=== PATIENT | male | born 1990 | race Caucasian/White ===

== ENCOUNTER 2020-12-02 17:09 | Inpatient (IN) | payer BC ==
[~2020-12-02] VITALS: Ht 190.5 cm; Wt 114.2 kg
[2020-12-02 18:07] LABS: BILIRUBIN,URINE NEGATIVE (NEG); CLARITY,URINE CLEAR; COLOR,URINE YELLOW; NITRITE,URINE NEGATIVE (NEG); PH,URINE 5.5 (<5.0-8.0); PROTEIN,URINE NEGATIVE (NEG-TRACE); UROBILINOGEN,URINE 0.2 mg/dL (0.2 mg/dL)
[2020-12-02 18:13] LABS: BASO % 0 % (0-3); EOS # 0.1 x10^3/uL (0.0-0.7); EOS % 1 % (0-3); HEMATOCRIT 45.6 % (39.0-53.0); HEMOGLOBIN 16.1 g/dL (13.0-17.5); LYMPH # 3.2 x10^3/uL (1.0-4.8); LYMPH % 36 % (24-48); MEAN CORPUSCULAR HEMOGLOBIN 33 pg (25-35); MEAN CORPUSCULAR HGB CONC 35 g/dL (31-37); MEAN CORPUSCULAR VOLUME 93 fL (79-100); MONO # 0.8 x10^3/uL (0.0-1.1); MONO % 9 % (0-9); NEUT # 4.7 x10^3/uL (1.8-7.7); NEUT % 54 % (31-73); PLATELET COUNT 230 x10^3/uL (140-400); RED BLOOD COUNT 4.93 x10^6/uL (4.30-5.70); RED CELL DISTRIBUTION WIDTH 11.6 % (11.5-14.5); WHITE BLOOD COUNT 8.8 x10^3/uL (4.0-11.0)
[2020-12-02 18:16] LABS: CALCIUM 9.7 mg/dL (8.5-10.1); CREATININE 1.1 mg/dL (0.7-1.3); GFR 79.7; POTASSIUM 3.3 mmol/L (3.5-5.1)
[2020-12-02 18:21] LABS: ALBUMIN 4.3 g/dL (3.4-5.0); ALBUMIN/GLOBULIN RATIO 1.2 (1.0-1.7); DIRECT BILIRUBIN 0.2 mg/dL (0.0-0.2); TOTAL BILIRUBIN 0.6 mg/dL (0.2-1.0); TOTAL PROTEIN 7.8 g/dL (6.4-8.2)
[2020-12-02 18:22] LABS: BACTERIA,URINE 0 /HPF (0-FEW); HYALINE CASTS, URINE MODERATE /HPF; RBC,URINE 0 /HPF (0-2); WBC,URINE 0 /HPF (0-4)
[2020-12-02] MEDS ORDERED: CONTRAST GIVEN. MC PRN (18:30)
[2020-12-02] MEDS ORDERED: IOHEXOL 300 MG/ML 100ML VIAL. IV ONE (18:30)
--- NOTE | 2020-12-02 18:47 | RAD ---
CT abdomen and pelvis with contrast PQRS statement: CT scans at this facility use dose reduction including either automated exposure cont rol, iterative reconstructions, and /or weight based radiation dosing via mA and kV modification when appropriate to reduce radiation dose to as low as reasonably achievable. Contrast: 75 mL of opaque 300 intravenous contrast. HISTORY: Right lower quadrant abdominal pain. Abdomen findings: Lung bases unremarkable. Chronic bilateral L5 spondylolysis defects with grade one L5 anterolisthesis and L5-S1 neural foraminal stenoses. Lower lumbar disc bulges. Small accessory spl een. Liver, gallbladder, spleen, pancreas, adrenal glands and kidneys are unremarkable. The appendix demonstrates mildly increased diameter as well as density which could be due to wall thickening at th e tip of the appendix on axial image 71, tip has a diameter of 11 mm, although no surrounding edema i s evident and there is no abscess. Remainder of the GI tract demonstrates no obstructive or inflammat ory change. No abdominal fluid or adenopathy. Mild prominent right lower quadrant ileocolic mesenteri c lymph nodes measuring up to 1 cm in size. 1 severe fatty umbilical abdominal wall hernia. Pelvis findings: Bladder, prostate, rectum and bones are unremarkable. No fluid or adenopathy in the pelvis. IMPRESSION: 1. Mild increased diameter and density of the tip of the appendix with a diameter of 11 mm. While the re is no surrounding edema or other inflammatory changes evident, this could represent early imaging changes of acute tip appendicitis. 2. Other incidental findings are present as described above. Electronically signed by: Gume Mcnally MD (12/02/2020 6:45 PM) [facility]
[2020-12-02] MEDS ORDERED: IV NORMAL SALINE 1000ML BAG 1,000 ML IV ONE (19:15)
[2020-12-02] MEDS ORDERED: fentaNYL PF VIAL 100 MCG/2 ML VIAL IVP ONE (19:15)
--- NOTE | 2020-12-02 20:07 | PHYS DOC ---
Past Medical History Past Medical History: DVT Past Surgical History: Other Additional Past Surgical Histo: R. ACL Smoking Status: Never Smoker Alcohol Use: Occasionally General Adult EDM: Chief Complaint: ABDOMINAL PAIN HPI: HPI: Patient is a 30 year old male presents emergency department complaining of right lower quadrant pain that started yesterday. Patient describes his pain as sharp, rates a 6/10 on a 1-10 pain scale however when he moves around increases to 8/10 pain. Patient states he has not taken any medications to relieve the pain. Patient states the pain does not radiate. Patient denies nausea vomiting or diarrhea. Patient denies chest pains, shortness of breath, or rashes of his skin. Patient states she is a cigarette smoker, drinks alcohol occasionally on the weekends, does not use any illicit drugs. Patient denies any allergies to medications, reports a surgical history of right knee surgery with right calf DVT 5 years ago. Patient states she is on no prescription medications at home. Patient denies any other physical complaints or physical concerns. Review of Systems: Review of Systems: 14 body systems of review of systems have been reviewed. See HPI for pertinent positives and negative responses, otherwise all other systems are negative, nonpertinent or noncontributory. Heart Score: Risk Factors: Risk Factors: DM, Current or recent (<one month) smoker, HTN, HLP, family history of CAD, obesity. Risk Scores: Score 0 - 3: 2.5% MACE over next 6 weeks - Discharge Home Score 4 - 6: 20.3% MACE over next 6 weeks - Admit for Clinical Observation Score 7 - 10: 72.7% MACE over next 6 weeks - Early Invasive Strategies Current Medications: Current Medications Medications (Trade) Dose Ordered Sig/[facility] Start Time Stop Time Status Last Admin Dose Admin Fentanyl Citrate (Fentanyl 2ml Vial) 50 mcg 1X ONCE 12/02/20 19:15 12/02/20 19:16 DC 12/02/20 19:14 50 MCG Info (CONTRAST GIVEN -- Rx MONITORING) 1 each PRN DAILY PRN 12/02/20 18:30 12/04/20 18:29 Iohexol (Omnipaque 300 Mg/ml) 75 ml 1X ONCE 12/02/20 18:30 12/02/20 18:31 DC 12/02/20 18:25 75 ML Sodium Chloride 1,000 ml @ 1,000 mls/hr 1X ONCE 12/02/20 19:15 12/02/20 20:14 12/02/20 19:14 1,000 MLS/HR Allergies: Allergies: Allergies Coded Allergies Type Severity Reaction Last Updated Verified No Known Drug Allergies 12/02/20 No Physical Exam: PE: Constitutional: Well developed, well nourished, no acute distress, non-toxic appearance. HENT: Normocephalic, atraumatic, bilateral external ears normal, oropharynx moist, no oral exudates, nose normal. Eyes: PERRLA, EOMI, conjunctiva normal, no discharge. Neck: Normal range of motion, no tenderness, supple, no stridor. Cardiovascular:Heart rate regular rhythm, no murmur, heart sounds S1-S2 to auscultation. Lungs & Thorax: Bilateral breath sounds clear to auscultation all lung ramos. Abdomen: Bowel sounds normal, soft, , no masses, no pulsatile masses. Negative psoas sign, negative straight leg raise sign, positive McBurney's point tenderness, positive rebound tenderness, no bruising or ecchymotic areas of the abdomen appreciated. Skin: Warm, dry, no erythema, no rash. Back: No tenderness, no CVA tenderness. Extremities: No tenderness, no cyanosis, no clubbing, ROM intact, no edema. Neurologic: Alert and oriented X 3, normal motor function, normal sensory function, no focal deficits noted. Psychologic: Affect normal, judgement normal, mood normal. Current Patient Data: Labs: Laboratory Tests Test 12/02/20 17:41 12/02/20 17:48 Urine Collection Type Unknown Urine Color Yellow Urine Clarity Clear Urine pH 5.5 Urine Specific Atwood >=1.030 Urine Protein Negative mg/dL Urine Glucose (UA) Negative mg/dL Urine Ketones (Stick) Negative mg/dL Urine Blood Negative Urine Nitrite Negative Urine Bilirubin Negative Urine Urobilinogen Dipstick 0.2 mg/dL Urine Leukocyte Esterase Negative Urine RBC 0 /HPF Urine WBC 0 /HPF Urine Bacteria 0 /HPF Urine Hyaline Casts Moderate /HPF Urine Mucus Mod /LPF White Blood Count 8.8 x10^3/uL Red Blood Count 4.93 x10^6/uL Hemoglobin 16.1 g/dL Hematocrit 45.6 % Mean Corpuscular Volume 93 fL Mean Corpuscular Hemoglobin 33 pg Mean Corpuscular Hemoglobin Concent 35 g/dL Red Cell Distribution Width 11.6 % Platelet Count 230 x10^3/uL Neutrophils (%) (Auto) 54 % Lymphocytes (%) (Auto) 36 % Monocytes (%) (Auto) 9 % Eosinophils (%) (Auto) 1 % Basophils (%) (Auto) 0 % Neutrophils # (Auto) 4.7 x10^3/uL Lymphocytes # (Auto) 3.2 x10^3/uL Monocytes # (Auto) 0.8 x10^3/uL Eosinophils # (Auto) 0.1 x10^3/uL Basophils # (Auto) 0.0 x10^3/uL Sodium Level 139 mmol/L Potassium Level 3.3 mmol/L Chloride Level 101 mmol/L Carbon Dioxide Level 28 mmol/L Anion Gap 10 Blood Urea Nitrogen 19 mg/dL Creatinine 1.1 mg/dL Estimated GFR (Cockcroft-Gault) 79.7 BUN/Creatinine Ratio 17 Glucose Level 81 mg/dL Calcium Level 9.7 mg/dL Total Bilirubin 0.6 mg/dL Direct Bilirubin 0.2 mg/dL Aspartate Amino Transf (AST/SGOT) 19 U/L Alanine Aminotransferase (ALT/SGPT) 35 U/L Alkaline Phosphatase 58 U/L Total Protein 7.8 g/dL Albumin 4.3 g/dL Albumin/Globulin Ratio 1.2 Lipase 94 U/L Current Medications Medications (Trade) Dose Ordered Sig/[facility] Route PRN Reason Start Time Stop Time Status Last Admin Dose Admin Iohexol (Omnipaque 300 Mg/ml) 75 ml 1X ONCE IV 12/02/20 18:30 12/02/20 18:31 DC 12/02/20 18:25 75 ML Info (CONTRAST GIVEN -- Rx MONITORING) 1 each PRN DAILY PRN MC SEE COMMENTS 12/02/20 18:30 12/04/20 18:29 Fentanyl Citrate (Fentanyl 2ml Vial) 50 mcg 1X ONCE IVP 12/02/20 19:15 12/02/20 19:16 DC 12/02/20 19:14 50 MCG Sodium Chloride 1,000 ml @ 1,000 mls/hr 1X ONCE IV 12/02/20 19:15 12/02/20 20:14 12/02/20 19:14 1,000 MLS/HR Laboratory Tests Test 12/02/20 17:41 12/02/20 17:48 Urine Collection Type Unknown Urine Color Yellow Urine Clarity Clear Urine pH 5.5 (<5.0-8.0) Urine Specific Atwood >=1.030 (1.000-1.030) Urine Protein Negative mg/dL (NEG-TRACE) Urine Glucose (UA) Negative mg/dL (NEG) Urine Ketones (Stick) Negative mg/dL (NEG) Urine Blood Negative (NEG) Urine Nitrite Negative (NEG) Urine Bilirubin Negative (NEG) Urine Urobilinogen Dipstick 0.2 mg/dL (0.2 mg/dL) Urine Leukocyte Esterase Negative (NEG) Urine RBC 0 /HPF (0-2) Urine WBC 0 /HPF (0-4) Urine Bacteria 0 /HPF (0-FEW) Urine Hyaline Casts Moderate /HPF Urine Mucus Mod /LPF White Blood Count 8.8 x10^3/uL (4.0-11.0) Red Blood Count 4.93 x10^6/uL (4.30-5.70) Hemoglobin 16.1 g/dL (13.0-17.5) Hematocrit 45.6 % (39.0-53.0) Mean Corpuscular Volume 93 fL (79-100) Mean Corpuscular Hemoglobin 33 pg (25-35) Mean Corpuscular Hemoglobin Concent 35 g/dL (31-37) Red Cell Distribution Width 11.6 % (11.5-14.5) Platelet Count 230 x10^3/uL (140-400) Neutrophils (%) (Auto) 54 % (31-73) Lymphocytes (%) (Auto) 36 % (24-48) Monocytes (%) (Auto) 9 % (0-9) Eosinophils (%) (Auto) 1 % (0-3) Basophils (%) (Auto) 0 % (0-3) Neutrophils # (Auto) 4.7 x10^3/uL (1.8-7.7) Lymphocytes # (Auto) 3.2 x10^3/uL (1.0-4.8) Monocytes # (Auto) 0.8 x10^3/uL (0.0-1.1) Eosinophils # (Auto) 0.1 x10^3/uL (0.0-0.7) Basophils # (Auto) 0.0 x10^3/uL (0.0-0.2) Sodium Level 139 mmol/L (136-145) Potassium Level 3.3 mmol/L (3.5-5.1) L Chloride Level 101 mmol/L (98-107) Carbon Dioxide Level 28 mmol/L (21-32) Anion Gap 10 (6-14) Blood Urea Nitrogen 19 mg/dL (8-26) Creatinine 1.1 mg/dL (0.7-1.3) Estimated GFR (Cockcroft-Gault) 79.7 BUN/Creatinine Ratio 17 (6-20) Glucose Level 81 mg/dL (70-99) Calcium Level 9.7 mg/dL (8.5-10.1) Total Bilirubin 0.6 mg/dL (0.2-1.0) Direct Bilirubin 0.2 mg/dL (0.0-0.2) Aspartate Amino Transferase (AST) 19 U/L (15-37) Alanine Aminotransferase (ALT) 35 U/L (16-63) Alkaline Phosphatase 58 U/L (46-116) Total Protein 7.8 g/dL (6.4-8.2) Albumin 4.3 g/dL (3.4-5.0) Albumin/Globulin Ratio 1.2 (1.0-1.7) Lipase 94 U/L (73-393) Laboratory Tests 12/02/20 17:48 Laboratory Tests 12/02/20 17:48 Vital Signs: Vital Signs Date Time Temp Pulse Resp B/P (MAP) Pulse Ox O2 Delivery O2 Flow Rate FiO2 12/02/20 19:14 18 12/02/20 19:00 78 97 Room Air 12/02/20 18:30 121/62 (81) 12/02/20 17:51 98.7 98.7 EKG: EKG: [] Radiology/Procedures: Radiology/Procedures: PATIENT: TIFF WINN ACCOUNT: [id number] : 1990 LOCATION: ER AGE: 30 SEX: M EXAM STATUS: REG ER ORD. PHYSICIAN: AUBREY REDDING APRN REASON: RIGHT LOWER QUADRANT PAIN PROCEDURE: CT ABD PELV W/ IV CONTRST ONLY CT abdomen and pelvis with contrast PQRS statement: CT scans at this facility use dose reduction including either automated exposure control, iterative reconstructions, and /or weight based radiation dosing via mA and kV modification when appropriate to reduce radiation dose to as low as reasonably achievable. Contrast: 75 mL of opaque 300 intravenous contrast. HISTORY: Right lower quadrant abdominal pain. Abdomen findings: Lung bases unremarkable. Chronic bilateral L5 spondylolysis defects with grade one L5 anterolisthesis and L5-S1 neural foraminal stenoses. Lower lumbar disc bulges. Small accessory spleen. Liver, gallbladder, spleen, pancreas, adrenal glands and kidneys are unremarkable. The appendix demonstrates mildly increased diameter as well as density which could be due to wall thickening at the tip of the appendix on axial image 71, tip has a diameter of 11 mm, although no surrounding edema is evident and there is no abscess. Remainder of the GI tract demonstrates no obstructive or inflammatory change. No abdominal fluid or adenopathy. Mild prominent right lower quadrant ileocolic mesenteric lymph nodes measuring up to 1 cm in size. 1 severe fatty umbilical abdominal wall hernia. Pelvis findings: Bladder, prostate, rectum and bones are unremarkable. No fluid or adenopathy in the pelvis. IMPRESSION: 1. Mild increased diameter and density of the tip of the appendix with a diameter of 11 mm. While there is no surrounding edema or other inflammatory changes evident, this could represent early imaging changes of acute tip appendicitis. 2. Other incidental findings are present as described above. Electronically signed by: Alok Mcnally MD (12/02/2020 6:45 PM) [facility] [place]ATED and SIGNED BY: ALOK MCNALLY MD DATE: 12/02/20 [id number] 0 Course & Med Decision Making: Course & Med Decision Making Pertinent Labs and Imaging studies reviewed. (See chart for details) 30-year-old male, vital signs reviewed, the emergency department with right lower quadrant pain. Physical examination concerning for possible appendicitis versus other acute abdomen process. A ER work-up was initiated. Patient serum labs unremarkable, however CT read by house radiologist concerning for acute appendicitis. Called and discussed case with general surgeon Dr. Huang who agreed to see patient under consult from [facility] physician, recommended patient be n.p.o. after midnight with plan for surgery in a.m. Called and discussed patient case with [facility] physician Dr. REMY who agreed to accept patient admission to the [facility] unit with Dr. Martinez as surgical consult. Discussed admission with patient and recommendations from Dr. Huang, patient is amenable to this plan, patient awaiting inpatient bed of MedSur unit. Sherman Disclaimer: Sherman Disclaimer: This electronic medical record was generated, in whole or in part, using a voice recognition dictation system. Departure Departure Impression: Primary Impression: Acute appendicitis Qualified Codes: K35.80 - Unspecified acute appendicitis Disposition: 09 ADMITTED INPT THIS HOSP Admitting Physician: NORA ( ADMIT TO DR REMY to MedSurg unit, Dr. Martinez surgical consult) Condition: GUARDED Referrals: CALVIN ROOT APRN (PCP) AUBREY REDDING APRN Dec 02, 2020 20:07
[2020-12-02] MEDS ORDERED: HYDROmorphone 2 MG/ML VIAL IVP ONE (20:15)
[2020-12-02] MEDS ORDERED: HYDROmorphone 2 MG/ML VIAL IVP PRN (20:30)
--- NOTE | 2020-12-02 20:58 | HP ---
ADMIT DATE: 12/02/2020 CHIEF COMPLAINT: Abdominal pain. HISTORY OF PRESENT ILLNESS: The patient is a pleasant healthy 30-year-old male who presented to the ER today with abdominal pain. It is custodial between the umbilicus and the anterior superior iliac crest at McBurney's point. He rates it as 6/10. He denies any associated nausea. We did a CAT scan in the ER. He does have appendicitis and incidental finding of accessory spleen. We are going to admit the patient and consult General Surgery. He is going to surgery tomorrow. PAST MEDICAL HISTORY: DVT, tobacco abuse and right ACL repair. ALLERGIES: None. FAMILY HISTORY: Diabetes. SOCIAL HISTORY: He drinks socially. No drugs or tobacco. He is . His actually is one of our RN here in the ER, Destiny. MEDICATIONS: Reviewed, please refer to the MRAD. REVIEW OF SYSTEMS: GENERAL: No history of weight change, weakness or fevers. SKIN: No bruising, hair changes or rashes. EYES: No blurred, double or loss of vision. NOSE AND THROAT: No history of nosebleeds, hoarseness or sore throat. HEART: No history of palpitations, chest pain or shortness of breath on exertion. LUNGS: Denies cough, hemoptysis, wheezing or shortness of breath. GASTROINTESTINAL: He complains of abdominal pain. GENITOURINARY: No history of frequency, urgency, hesitancy or nocturia. NEUROLOGIC: Denies history of numbness, tingling, tremor or weakness. PSYCHIATRIC: No history of panic, anxiety or depression. ENDOCRINE: No history of heat or cold intolerance, polyuria or polydipsia. EXTREMITIES: Denies muscle weakness, joint pain, pain on walking or stiffness. PHYSICAL EXAMINATION: VITAL SIGNS: Temperature is 98.7, pulse is little high at 110 but it is down to 78, respirations 18, blood pressure 121/62 and O2 sat 97% on room air. GENERAL: No apparent distress. Alert and oriented. HEENT: Normal cephalic atraumatic, external auditory canals are patent EYES: Extraocular muscles are intact, pupils are equally round and reactive to light and accommodation MUSCULOSKELETAL: Well developed, well nourished, good range of motion ENDOCRINE: No thyromegaly was palpated LYMPHATICS: No cervical chain or axillary nodes were noted HEMATOPOIETIC: No bruising NECK: Supple, no JVD, no thyromegaly was noted. LUNGS: Clear to auscultation in all lung ramos without rhonchi or wheezing. HEART: RRR, S1, S2 present. Peripheral pulses intact, no obvious murmurs were noted. ABDOMEN: He has pain to palpation at McBurney's point with decreased bowel sounds. EXTREMITIES: Without any cyanosis, clubbing, or edema. Pedal pulses intact, Homans sign is negative. NEUROLOGIC: Normal speech, normal tone. A & O x3, moves all extremities, no obvious focal deficits. PSYCHIATRIC: Normal affect, normal mood. Stable. SKIN: No ulcerations or rashes, good skin turgor, no jaundice. VASCULAR: Good capillary refill, neurovascular bundle appears to be intact. LABORATORY DATA: White count is 8. IMAGING: CT of the abdomen shows acute appendicitis and accessory spleen. ASSESSMENT AND PLAN: Appendicitis. The patient has been admitted. We will consult General Surgery. He is going to surgery tomorrow. For now, we are giving him p.r.n. Dilaudid and IV fluids. We will let him have a soft diet until midnight, then n.p.o. after midnight. Encouraged him to stick with some clear liquids if possible. GEOFF REMY DO DR: JOELLE/antoinette JOB#: [id number] / [id number]
--- NOTE | 2020-12-02 23:00 | NUR ---
ADMIT NOTE The patient, TIFF WINN, 30 y/o, M admitted by GEOFF REMY III, DO, was given written information regarding hospital policies, unit procedures and contact persons. Patient's orientated to unit, plan of care and admit packet discussed; preferred pharmacy reviewed. Patient reports no home medications and NKDA. Patient now resting in bed, call light within reach, and bed in lowest/locked position; no other needs voiced at this time.
[2020-12-02 23:18] VITALS: BP 134/92
[2020-12-03 03:12] VITALS: BP 114/65
[2020-12-03 07:00] VITALS: BP 120/70
--- NOTE | 2020-12-03 08:25 | PDOC2 ---
VERONICA KNAPP WOOD SHINGLE ROOFER 12/03/20 0825: CONSULT Date of Consult Date of Consult DATE: 12/03/20 TIME: 08:19 Reason for Consult Reason for Consult: appendicitis Referring Physician Referring Physician: ER Identification/Chief Complaint Chief Complaint abdominal pain Source Source: Chart review, Patient History of Present Illness Reason for Visit: RLQ pain since Wednesday, worked yesterday, no improvement, seems worse with m ovement, no n/v, no constipation or diarrhea, low appetite and has not eaten much since started. No similar symptoms in past Past Medical History Heme/Onc: Other (DVT) Past Surgical History Past Surgical History: Total knee replacement Family History Family History: Other (noncontributory to current illness ) Social History No ALCOHOL: occassional Drugs: None Lives: with Family Current Medications Current Medications Current Medications Iohexol (Omnipaque 300 Mg/ml) 75 ml 1X ONCE IV Last administered on 12/02/20at 18:25; Start 12/02/20 at 18:30; Stop 12/02/20 at 18:31; Status DC Info (CONTRAST GIVEN -- Rx MONITORING) 1 each PRN DAILY PRN MC SEE COMMENTS; Start 12/02/20 at 18:30; Stop 12/04/20 at 18:29 Fentanyl Citrate (Fentanyl 2ml Vial) 50 mcg 1X ONCE IVP Last administered on 12/02/20at 19:14; Start 12/02/20 at 19:15; Stop 12/02/20 at 19:16; Status DC Sodium Chloride 1,000 ml @ 1,000 mls/hr 1X ONCE IV Last administered on 12/02/20at 19:14; Start 12/02/20 at 19:15; Stop 12/02/20 at 20:14; Status DC Hydromorphone HCl (Dilaudid) 2 mg 1X ONCE IVP Last administered on 12/02/20at 20:23; Start 12/02/20 at 20:15; Stop 12/02/20 at 20:16; Status DC Hydromorphone HCl (Dilaudid) 2 mg QIDPRN PRN IVP pain Last administered on 12/02/20at 22:17; Start 12/02/20 at 20:30 Allergies Allergies: Coded Allergies: No Known Drug Allergies (Unverified , 12/02/20) ROS General: YES: Appetite (loss); No: Chills, Other (fevers ) PSYCHOLOGICAL ROS: No: Anxiety, Depression Eyes: No Blurry vision, No Double vision HEENT: No: Heacaches, Sore Throat Hematological and Lymphatic: YES: Blood Clots (hx, no current anticoags); No: Bleeding Problems Respiratory: No: Cough, Shortness of breath Cardiovascular: No Chest Pain, No Palpitations Gastrointestinal: Yes Other (see hpi) Genitourinary: No Dysuria, No Hematuria Musculoskeletal: No Joint Pain, No Muscle Pain Neurological: No Impaired Coord/balance, No Numbness/Tingling Skin: No Pruritus, No Rash Physical Exam General: Alert, Oriented X3, Cooperative HEENT: Atraumatic Lungs: Clear to auscultation, Normal air movement Heart: Regular rate, Normal S1, Normal S2 Abdomen: Soft, Other (ND, RLQ mild TTP) Extremities: No clubbing, No cyanosis Skin: No rashes, No breakdown Neuro: Normal gait, Normal speech Psych/Mental Status: Mental status NL, Mood NL MUSCULOSKELETAL: No deformity, No swelling Vitals VITALS Vital Signs Date Time Temp Pulse Resp B/P (MAP) Pulse Ox O2 Delivery O2 Flow Rate FiO2 12/03/20 07:10 Room Air 12/03/20 07:00 98.3 67 16 120/70 (87) 98 98.3 Labs Labs Laboratory Tests Test 12/02/20 17:41 12/02/20 17:48 12/02/20 22:45 Urine Collection Type Unknown Urine Color Yellow Urine Clarity Clear Urine pH 5.5 (<5.0-8.0) Urine Specific [place] >=1.030 (1.000-1.030) Urine Protein Negative mg/dL (NEG-TRACE) Urine Glucose (UA) Negative mg/dL (NEG) Urine Ketones (Stick) Negative mg/dL (NEG) Urine Blood Negative (NEG) Urine Nitrite Negative (NEG) Urine Bilirubin Negative (NEG) Urine Urobilinogen Dipstick 0.2 mg/dL (0.2 mg/dL) Urine Leukocyte Esterase Negative (NEG) Urine RBC 0 /HPF (0-2) Urine WBC 0 /HPF (0-4) Urine Bacteria 0 /HPF (0-FEW) Urine Hyaline Casts Moderate /HPF Urine Mucus Mod /LPF White Blood Count 8.8 x10^3/uL (4.0-11.0) Red Blood Count 4.93 x10^6/uL (4.30-5.70) Hemoglobin 16.1 g/dL (13.0-17.5) Hematocrit 45.6 % (39.0-53.0) Mean Corpuscular Volume 93 fL (79-100) Mean Corpuscular Hemoglobin 33 pg (25-35) Mean Corpuscular Hemoglobin Concent 35 g/dL (31-37) Red Cell Distribution Width 11.6 % (11.5-14.5) Platelet Count 230 x10^3/uL (140-400) Neutrophils (%) (Auto) 54 % (31-73) Lymphocytes (%) (Auto) 36 % (24-48) Monocytes (%) (Auto) 9 % (0-9) Eosinophils (%) (Auto) 1 % (0-3) Basophils (%) (Auto) 0 % (0-3) Neutrophils # (Auto) 4.7 x10^3/uL (1.8-7.7) Lymphocytes # (Auto) 3.2 x10^3/uL (1.0-4.8) Monocytes # (Auto) 0.8 x10^3/uL (0.0-1.1) Eosinophils # (Auto) 0.1 x10^3/uL (0.0-0.7) Basophils # (Auto) 0.0 x10^3/uL (0.0-0.2) Sodium Level 139 mmol/L (136-145) Potassium Level 3.3 mmol/L (3.5-5.1) Chloride Level 101 mmol/L (98-107) Carbon Dioxide Level 28 mmol/L (21-32) Anion Gap 10 (6-14) Blood Urea Nitrogen 19 mg/dL (8-26) Creatinine 1.1 mg/dL (0.7-1.3) Estimated GFR (Cockcroft-Gault) 79.7 BUN/Creatinine Ratio 17 (6-20) Glucose Level 81 mg/dL (70-99) Calcium Level 9.7 mg/dL (8.5-10.1) Total Bilirubin 0.6 mg/dL (0.2-1.0) Direct Bilirubin 0.2 mg/dL (0.0-0.2) Aspartate Amino Transf (AST/SGOT) 19 U/L (15-37) Alanine Aminotransferase (ALT/SGPT) 35 U/L (16-63) Alkaline Phosphatase 58 U/L (46-116) Total Protein 7.8 g/dL (6.4-8.2) Albumin 4.3 g/dL (3.4-5.0) Albumin/Globulin Ratio 1.2 (1.0-1.7) Lipase 94 U/L (73-393) SARS-CoV-2 Antigen (Rapid) Negative (NEGATIVE) Laboratory Tests Test 12/02/20 17:41 12/02/20 17:48 12/02/20 22:45 Urine Collection Type Unknown Urine Color Yellow Urine Clarity Clear Urine pH 5.5 (<5.0-8.0) Urine Specific [place] >=1.030 (1.000-1.030) Urine Protein Negative mg/dL (NEG-TRACE) Urine Glucose (UA) Negative mg/dL (NEG) Urine Ketones (Stick) Negative mg/dL (NEG) Urine Blood Negative (NEG) Urine Nitrite Negative (NEG) Urine Bilirubin Negative (NEG) Urine Urobilinogen Dipstick 0.2 mg/dL (0.2 mg/dL) Urine Leukocyte Esterase Negative (NEG) Urine RBC 0 /HPF (0-2) Urine WBC 0 /HPF (0-4) Urine Bacteria 0 /HPF (0-FEW) Urine Hyaline Casts Moderate /HPF Urine Mucus Mod /LPF White Blood Count 8.8 x10^3/uL (4.0-11.0) Red Blood Count 4.93 x10^6/uL (4.30-5.70) Hemoglobin 16.1 g/dL (13.0-17.5) Hematocrit 45.6 % (39.0-53.0) Mean Corpuscular Volume 93 fL (79-100) Mean Corpuscular Hemoglobin 33 pg (25-35) Mean Corpuscular Hemoglobin Concent 35 g/dL (31-37) Red Cell Distribution Width 11.6 % (11.5-14.5) Platelet Count 230 x10^3/uL (140-400) Neutrophils (%) (Auto) 54 % (31-73) Lymphocytes (%) (Auto) 36 % (24-48) Monocytes (%) (Auto) 9 % (0-9) Eosinophils (%) (Auto) 1 % (0-3) Basophils (%) (Auto) 0 % (0-3) Neutrophils # (Auto) 4.7 x10^3/uL (1.8-7.7) Lymphocytes # (Auto) 3.2 x10^3/uL (1.0-4.8) Monocytes # (Auto) 0.8 x10^3/uL (0.0-1.1) Eosinophils # (Auto) 0.1 x10^3/uL (0.0-0.7) Basophils # (Auto) 0.0 x10^3/uL (0.0-0.2) Sodium Level 139 mmol/L (136-145) Potassium Level 3.3 mmol/L (3.5-5.1) Chloride Level 101 mmol/L (98-107) Carbon Dioxide Level 28 mmol/L (21-32) Anion Gap 10 (6-14) Blood Urea Nitrogen 19 mg/dL (8-26) Creatinine 1.1 mg/dL (0.7-1.3) Estimated GFR (Cockcroft-Gault) 79.7 BUN/Creatinine Ratio 17 (6-20) Glucose Level 81 mg/dL (70-99) Calcium Level 9.7 mg/dL (8.5-10.1) Total Bilirubin 0.6 mg/dL (0.2-1.0) Direct Bilirubin 0.2 mg/dL (0.0-0.2) Aspartate Amino Transf (AST/SGOT) 19 U/L (15-37) Alanine Aminotransferase (ALT/SGPT) 35 U/L (16-63) Alkaline Phosphatase 58 U/L (46-116) Total Protein 7.8 g/dL (6.4-8.2) Albumin 4.3 g/dL (3.4-5.0) Albumin/Globulin Ratio 1.2 (1.0-1.7) Lipase 94 U/L (73-393) SARS-CoV-2 Antigen (Rapid) Negative (NEGATIVE) Assessment/Plan Assessment/Plan RLQ abdominal pain, CT possible early tip appendicitis, wbc normal will review with Dr Heredia, no improvement in pain since admission, consider lap appy, however no definitive findings --vs observation/abx --d/w pt he prefers surgical intervention, will plan for today RAMÍREZ HEREDIA MD 12/03/20 1019: CONSULT Assessment/Plan Assessment/Plan Pt seen and examined. Agree with Ms. Liza's note D/w pt and pt's mother. TO OR for laproscopic versus open appendectomy. R/R/B/A d/w them. Risks, including, but not limited to: bleeding, infection, damage to surrounding structures, risk of anesthesia, risk of open, and not resolving pain. They appear to understand, their questions are answered and they elect to proceed. Thanks for consult! VERONICA KNAPP APRN Dec 03, 2020 08:25 RAMÍREZ HEREDIA MD Dec 03, 2020 10:19
[2020-12-03] MEDS ORDERED: cefOXitin SODIUM IV Push 2 GM VIAL. IVP ONE (09:29)
--- NOTE | 2020-12-03 09:36 | NUR ---
SW following. Discussed with RN, pt from home, room air, NPO, rapid COVID-19 negative. Possible surgery today to remove appendix. RN advised no SW needs at this time. SW will continue to follow.
[2020-12-03] MEDS ORDERED: SEVOFLURANE 61 TO 120 MINUTES. IH ONE (09:47)
[2020-12-03] MEDS ORDERED: SUCCINYLCHOLINE 200 MG/10 ML VIAL. ONE (09:47)
[2020-12-03] MEDS ORDERED: NEOSTIGMINE METHYLSULFATE 5 MG/5 ML SYRINGE. ONE (09:47)
[2020-12-03] MEDS ORDERED: GLYCOPYRROLATE 1 MG/5 ML VIAL. ONE (09:48)
[2020-12-03] MEDS ORDERED: ONDANSETRON PF 4 MG/2 ML VIAL. ONE (09:48)
[2020-12-03] MEDS ORDERED: MIDAZOLAM HCL/PF 2 MG/2 ML VIAL. ONE (09:48)
[2020-12-03] MEDS ORDERED: fentaNYL PF VIAL 100 MCG/2 ML VIAL ONE ×3 (09:48→11:30)
[2020-12-03] MEDS ORDERED: LIDOCAINE 2% PF 5 ML VIAL. ONE (09:48)
[2020-12-03] MEDS ORDERED: ROCURONIUM 50 MG/5 ML VIAL. ONE (09:48)
[2020-12-03] MEDS ORDERED: PROPOFOL 10 MG/ML (20ML) VIAL. IV ONE (09:48)
[2020-12-03] MEDS ORDERED: DEXAMETHASONE SOD PHOS 4 MG/ML VIAL ONE (09:48)
[2020-12-03] MEDS ORDERED: cefOXitin SODIUM IV Push 2 GM VIAL. IVP PRN (10:00)
[2020-12-03] MEDS ORDERED: fentaNYL PF VIAL 100 MCG/2 ML VIAL IVP PRN (10:15)
[2020-12-03] MEDS ORDERED: MORPHINE SULFATE 2 MG/ML VIAL. IVP PRN (10:15)
[2020-12-03] MEDS ORDERED: IV RINGERS,LACTATED 1000ML 1,000 ML IV SCH ×2 (10:15→12:00)
[2020-12-03] MEDS ORDERED: PROCHLORPERAZINE 10 MG/2 ML VIAL. IVP PRN (10:15)
[2020-12-03] MEDS ORDERED: HYDROmorphone 2 MG/ML VIAL IVP PRN (10:15)
[2020-12-03] MEDS ORDERED: BUPIVACAINE-EPI 0.5% 30 ML VIAL KIT. ONE (10:27)
[2020-12-03] MEDS ORDERED: IV NORMAL SALINE 1000ML BAG 1,000 ML IV SCH (12:00)
[2020-12-03] MEDS ORDERED: HYDROcodone/APAP 5/325MG 1 TAB TABLET PO PRN (12:00)
[2020-12-03] MEDS ORDERED: NALOXONE 0.4 MG/ML VIAL. IV PRN (12:00)
[2020-12-03] MEDS: fentaNYL PF VIAL 100 MCG/2 ML VIAL IVP PRN ×2 (12:00→12:23)
[2020-12-03] MEDS ORDERED: 0.9 % SODIUM CHLORIDE 10 ML DISP.SYRIN. IV PRN (12:00)
[2020-12-03] MEDS ORDERED: ONDANSETRON PF 4 MG/2 ML VIAL. IVP PRN (12:00)
--- NOTE | 2020-12-03 12:06 | PDOC4 ---
OPERATIVE NOTE Date: Date: Dec 03, 2020 Pre-Op Diagnosis: Appendicitis Post-Op Diagnosis: same Procedure Performed: laparoscopic appendectomy Surgeon: Patel Jackson Anesthesia Type: GETA plus local Blood Loss: 50 Specimans Obtained: appendix Findings: erythema of indurated appendix Complications: none Operative Note: After obtaining informed consent, patient was taken to OR, induced under GETA and prepped in the usual fashion. 5 mm port placed LLQ and suprapubic, 12 port placed umbilical, all under laparoscopic guidance. Abdominal cavity was explored and essentially normal except as above. Appendix was grasped. Defect created in mesoappendix. General load MARGIE taken across base of appendix. Vascular load taken across mesoappendix. Additional hemostasis obtained on mesoappendix using clips. Appendix placed in bag, delivered and sent to pathology. Copious irrigation. No evidence of bleeding or other pathology. Ports removed without bleeding. Fascia repaired with 0 vicryl. Skin repaired with 4 0 monocryl. Dressing placed. Patient tolerated procedure well and sent to PACU in stable condition. All counts correct. Wound class is 3. RAMÍREZ JACKSON MD Dec 03, 2020 12:06
[2020-12-03] MEDS ORDERED: KETOROLAC 30 MG/ML VIAL. IVP ONE (12:19)
[2020-12-03] MEDS ORDERED: PROCHLORPERAZINE 10 MG/2 ML VIAL. ONE (12:20)
--- NOTE | 2020-12-03 14:08 | PDOC ---
[employer] PROGRESS NOTE Date of Service DOS: DATE: 12/03/20 TIME: 14:05 Chief Complaint Chief Complaint Acute abdominal pain due to acute appendicitis Hypokalemia Admit to medicine for further management Surgery consult for lap appendectomy Continue empiric IV antibiotics History of Present Illness History of Present Illness 12/03/2020 No acute events overnight. Patient taken down to the OR for laparoscopic appendectomy. Patient's chart, labs, images were reviewed and discussed with RN 30-year-old male who presented to the ER today with abdominal pain. It is shelter between the umbilicus and the anterior superior iliac crest at McBurney's point. He rates it as 6/10. He denies any associated nausea. We did a CAT scan in the ER. He does have appendicitis and incidental finding of accessory spleen Vitals/I&O Vitals/I&O: Vital Signs Date Time Temp Pulse Resp B/P (MAP) Pulse Ox O2 Delivery O2 Flow Rate FiO2 12/03/20 13:23 Room Air 12/03/20 12:53 97.8 68 20 128/61 99 97.8 12/03/20 12:05 10 I & O 12/02/20 12/02/20 12/03/20 15:00 23:00 07:00 Intake Total 1000 ml Balance 1000 ml Physical Exam General: Alert, Oriented X3, Cooperative Heart: Regular rate, Normal S1, Normal S2 Abdomen: Soft, Other (ND, RLQ mild TTP) Extremities: No clubbing, No cyanosis Skin: No rashes, No breakdown Labs Labs: Laboratory Tests Test 12/02/20 17:41 12/02/20 17:48 12/02/20 22:45 Urine Collection Type Unknown Urine Color Yellow Urine Clarity Clear Urine pH 5.5 (<5.0-8.0) Urine Specific [place] >=1.030 (1.000-1.030) Urine Protein Negative mg/dL (NEG-TRACE) Urine Glucose (UA) Negative mg/dL (NEG) Urine Ketones (Stick) Negative mg/dL (NEG) Urine Blood Negative (NEG) Urine Nitrite Negative (NEG) Urine Bilirubin Negative (NEG) Urine Urobilinogen Dipstick 0.2 mg/dL (0.2 mg/dL) Urine Leukocyte Esterase Negative (NEG) Urine RBC 0 /HPF (0-2) Urine WBC 0 /HPF (0-4) Urine Bacteria 0 /HPF (0-FEW) Urine Hyaline Casts Moderate /HPF Urine Mucus Mod /LPF White Blood Count 8.8 x10^3/uL (4.0-11.0) Red Blood Count 4.93 x10^6/uL (4.30-5.70) Hemoglobin 16.1 g/dL (13.0-17.5) Hematocrit 45.6 % (39.0-53.0) Mean Corpuscular Volume 93 fL (79-100) Mean Corpuscular Hemoglobin 33 pg (25-35) Mean Corpuscular Hemoglobin Concent 35 g/dL (31-37) Red Cell Distribution Width 11.6 % (11.5-14.5) Platelet Count 230 x10^3/uL (140-400) Neutrophils (%) (Auto) 54 % (31-73) Lymphocytes (%) (Auto) 36 % (24-48) Monocytes (%) (Auto) 9 % (0-9) Eosinophils (%) (Auto) 1 % (0-3) Basophils (%) (Auto) 0 % (0-3) Neutrophils # (Auto) 4.7 x10^3/uL (1.8-7.7) Lymphocytes # (Auto) 3.2 x10^3/uL (1.0-4.8) Monocytes # (Auto) 0.8 x10^3/uL (0.0-1.1) Eosinophils # (Auto) 0.1 x10^3/uL (0.0-0.7) Basophils # (Auto) 0.0 x10^3/uL (0.0-0.2) Sodium Level 139 mmol/L (136-145) Potassium Level 3.3 mmol/L (3.5-5.1) Chloride Level 101 mmol/L (98-107) Carbon Dioxide Level 28 mmol/L (21-32) Anion Gap 10 (6-14) Blood Urea Nitrogen 19 mg/dL (8-26) Creatinine 1.1 mg/dL (0.7-1.3) Estimated GFR (Cockcroft-Gault) 79.7 BUN/Creatinine Ratio 17 (6-20) Glucose Level 81 mg/dL (70-99) Calcium Level 9.7 mg/dL (8.5-10.1) Total Bilirubin 0.6 mg/dL (0.2-1.0) Direct Bilirubin 0.2 mg/dL (0.0-0.2) Aspartate Amino Transf (AST/SGOT) 19 U/L (15-37) Alanine Aminotransferase (ALT/SGPT) 35 U/L (16-63) Alkaline Phosphatase 58 U/L (46-116) Total Protein 7.8 g/dL (6.4-8.2) Albumin 4.3 g/dL (3.4-5.0) Albumin/Globulin Ratio 1.2 (1.0-1.7) Lipase 94 U/L (73-393) SARS-CoV-2 Antigen (Rapid) Negative (NEGATIVE) Comment Review of Relevant I have reviewed the following items harpal (where applicable) has been applied. Medications: Current Medications Medications (Trade) Dose Ordered Sig/Yuly Route PRN Reason Start Time Stop Time Status Last Admin Dose Admin Iohexol (Omnipaque 300 Mg/ml) 75 ml 1X ONCE IV 12/02/20 18:30 12/02/20 18:31 DC 12/02/20 18:25 Fentanyl Citrate (Fentanyl 2ml Vial) 50 mcg 1X ONCE IVP 12/02/20 19:15 12/02/20 19:16 DC 12/02/20 19:14 Sodium Chloride 1,000 ml @ 1,000 mls/hr 1X ONCE IV 12/02/20 19:15 12/02/20 20:14 DC 12/02/20 19:14 Hydromorphone HCl (Dilaudid) 2 mg 1X ONCE IVP 12/02/20 20:15 12/02/20 20:16 DC 12/02/20 20:23 Hydromorphone HCl (Dilaudid) 2 mg QIDPRN PRN IVP pain 12/02/20 20:30 12/02/20 22:17 Cefoxitin Sodium (Mefoxin) 2 gm 1X PREOP PRN IVP PRIOR TO PROCEDURE 12/03/20 10:00 12/03/20 19:00 12/03/20 10:45 Fentanyl Citrate (Fentanyl 2ml Vial) 50 mcg PRN Q5MIN PRN IVP MODERATE PAIN 4-6 12/03/20 10:15 12/04/20 10:14 12/03/20 12:23 Ringer's Solution 1,000 ml @ 30 mls/hr Q24H IV 12/03/20 10:15 12/03/20 22:14 12/03/20 10:00 Prochlorperazine Edisylate (Compazine) 5 mg PACU PRN PRN IVP NAUSEA, MRX1 12/03/20 10:15 12/04/20 10:14 12/03/20 12:24 Bupivacaine HCl/ Epinephrine Bitart (Sensorcain-Epi 0.5% Kit) 30 ml STK-MED ONCE .ROUTE 12/03/20 10:27 12/03/20 10:27 DC 12/03/20 11:06 Ringer's Solution 1,000 ml @ 100 mls/hr Q10H IV 12/03/20 12:00 12/03/20 13:25 Sodium Chloride 1,000 ml @ 25 mls/hr Q24H IV 12/03/20 12:00 12/03/20 12:30 Ketorolac Tromethamine (Toradol 30mg Vial) 30 mg 1X ONCE IVP 12/03/20 12:19 12/03/20 12:20 DC 12/03/20 12:24 Justifications for Admission Other Justification SEBASTIAN RIVAS MD Dec 03, 2020 14:08
[2020-12-03] MEDS ORDERED: PIP/TAZO PER PHARMACY MC PRN (14:15)
[2020-12-03 15:00] VITALS: BP 120/68
[2020-12-03] MEDS ORDERED: PIPERACILLIN/TAZOBACTAM 3.375 GM in IV NORMAL SALINE 50ML 50 ML IV SCH (15:00)
[2020-12-03] MEDS ORDERED: DOCUSATE SODIUM 100 MG CAPSULE. PO SCH (21:00)
== END 2020-12-03 18:03 | disposition home or self-care (01) | DRG 342 ==
LOC: ER 17:09 → 4 NORTH 19:30
PROVIDERS: ADMIT Internal Medicine; ATTEND Internal Medicine
PROC: 0DTJ4ZZ Resection of Appendix, Percutaneous Endoscopic Approach (ICD-10-PCS; principal; 2020-12-03 10:45)
DX: K35.80 Unspecified acute appendicitis (principal); Q89.09 Congenital malformations of spleen; E87.6 Hypokalemia; F17.210 Nicotine dependence, cigarettes, uncomplicated; M43.06 Spondylolysis, lumbar region; Z96.659 Presence of unspecified artificial knee joint; Z86.718 Personal history of other venous thrombosis and embolism; Z83.3 Family history of diabetes mellitus; Z20.822 Contact with and (suspected) exposure to COVID-19
CPT/HCPCS: 36415; 74177; 80053; 80076; 81001; 83690; 85025; 87426; 96361; 96374; 96375; 96376; 99285; J0330; J0694; J0780; J1100; J1170; J1885; J2250; J2405; J2543; J2704; J2710; J3010; J3490; J7030; J7120; Q9967; U0003; G0378

== ENCOUNTER 2021-06-24 21:15 | Emergency (ER) | payer BC ==
[~2021-06-24] VITALS: Ht 190.5 cm; Wt 112.0 kg
[2021-06-24] MEDS ORDERED: TETRACAINE 0.5% OPHTH SOLUTION 4ML BOTTLE. OU ONE (22:00)
[2021-06-24] MEDS ORDERED: FLUORESCEIN OPHTH TEST STRIP. OU ONE (22:00)
[2021-06-24] MEDS ORDERED: ERYT1OIN6 OP (22:27)
--- NOTE | 2021-06-24 22:28 | PHYS DOC ---
Past Medical History Past Medical History: DVT Past Surgical History: Other Additional Past Surgical Histo: R. ACL Smoking Status: Current Some Day Smoker Alcohol Use: Occasionally General Adult EDM: Chief Complaint: EYE PROBLEMS HPI: HPI: Patient is a 31-year-old male presents emergency department reporting just prior to arrival he was cutting PVC pipe with a rotary power tool when a piece flung into his left eye, reports he was not wearing eye protection. States he believes the piece came out however he is having difficulty seeing through his left eye. Patient reports 10 out of 10 pain when blinking however states pain is significantly decreased when not moving his eye or blinking. Denies any visual disturbance from the right eye. Patient states "it looks like I am seeing through hazy cellophane "patient reports he can see object outlines and colors and light however unable to focus clearly with left eye. Patient reports his last tetanus immunization was greater than 5 years ago, denies other physical complaints or physical concerns. Review of Systems: Review of Systems: 14 body systems of review of systems have been reviewed. See HPI for pertinent positives and negative responses, otherwise all other systems are negative, nonpertinent or noncontributory. Constitutional: Negative except as outlined in HPI above. Skin: Negative except as outlined in HPI above. Eyes: Negative except as outlined in HPI above. HENT: Negative except as outlined in HPI above. Respiratory: Negative except as outlined in HPI above. Cardiovascular: Negative except as outlined in HPI above. GI: Negative except as outlined in HPI above. : Negative except as outlined in HPI above. Musculoskeletal: Negative except as outlined in HPI above. Integument: Negative except as outlined in HPI above. Neurologic: Negative except as outlined in HPI above. Endocrine: Negative except as outlined in HPI above. Lymphatic: Negative except as outlined in HPI above. Psychiatric: Negative except as outlined in HPI above. Heart Score: C/O Chest Pain: No Risk Factors: Risk Factors: DM, Current or recent (<one month) smoker, HTN, HLP, family history of CAD, obesity. Risk Scores: Score 0 - 3: 2.5% MACE over next 6 weeks - Discharge Home Score 4 - 6: 20.3% MACE over next 6 weeks - Admit for Clinical Observation Score 7 - 10: 72.7% MACE over next 6 weeks - Early Invasive Strategies Current Medications: Current Medications Medications (Trade) Dose Ordered Sig/Yuly Start Time Stop Time Status Last Admin Dose Admin Fluorescein Sodium (Ful-Hazel) 1 strip 1X ONCE 06/24/21 22:00 06/24/21 22:01 DC 06/24/21 21:59 1 STRIP Tetracaine HCl (Tetracaine) 1 drop 1X ONCE 06/24/21 22:00 06/24/21 22:01 DC 06/24/21 21:41 1 DROP Allergies: Allergies: Allergies Coded Allergies Type Severity Reaction Last Updated Verified No Known Drug Allergies 06/24/21 No Physical Exam: PE: Constitutional: Well developed, well nourished, no acute distress, non-toxic appearance. 31-year-old male in no apparent distress. HENT: Normocephalic, atraumatic. Eyes: PERRLA, EOMI, conjunctiva normal of right eye, no discharge of right eye, conjunctiva normal left eye, no discharge from left eye, patient photophobic of the left eye, visual acuity OS 20/300, OD 20/20, OU 20/40, [place] lamp examination after tetracaine administration reveals corneal abrasion from just above the pupil superior aspect at the 12 o'clock position superiorly traveling inferiorly and veering off towards the 5 o'clock position to approximately 2 mm outside of iris. Globe intact. Fundal exam within normal limits. Neck: Normal range of motion, no stridor. Cardiovascular: No cyanosis appreciated, distal cap refill less than 2 seconds. Lungs & Thorax: Patient is in no respiratory distress, no audible adventitious lung sounds appreciated. Abdomen: Nontender, no abnormalities noted. Skin: Warm, dry, no erythema, no rash. Back: No tenderness, no deformities. Extremities: No tenderness, no cyanosis, no clubbing, ROM intact, no edema. Neurologic: Alert and oriented X 3, normal motor function, normal sensory function, no focal deficits noted. Psychologic: Affect normal, judgement normal, mood normal. Current Patient Data: Vital Signs: Vital Signs Date Time Temp Pulse Resp B/P (MAP) Pulse Ox O2 Delivery O2 Flow Rate FiO2 06/24/21 21:41 89 18 138/81 (100) 97 Room Air EKG: EKG: [] Radiology/Procedures: Radiology/Procedures: [] Course & Med Decision Making: Course & Med Decision Making Pertinent Labs and Imaging studies reviewed. (See chart for details) 31-year-old male, vital signs reviewed, presents emergency department concerning plastic foreign body in left eye. Physical examination consistent with patient's explanation of events, visual acuity performed by ED nursing staff, [place] lamp examination reveals corneal abrasion, will bring patient's tetanus status up-to-date today with Adacel/Tdap, will give first antibiotic ointment administration of erythromycin. Discussed findings with patient, antibiotic therapy, side effects of medication, administration of ointment 4 times a day for 5 days. Strict follow-up with ophthalmology, patient gave verbal understanding and agrees with ED discharge planning. Discussed with the patient all findings and diagnostic testing as well as the need to follow-up with their primary care provider for further evaluation and treatment or return to the ED if any new or worsening symptoms. Strict return precautions were also discussed at length, the patient voiced understanding and agreement with the discharge planning. The patient was nontoxic in appearance, in no apparent distress, and hemodynamically stable at the time of disposition. Dragon Disclaimer: DragStemPath Disclaimer: This electronic medical record was generated, in whole or in part, using a voice recognition dictation system. Departure Departure Impression: Primary Impression: Corneal abrasion, left Qualified Codes: S05.02XA - Injury of conjunctiva and corneal abrasion without foreign body, left eye, initial encounter Disposition: 01 HOME / SELF CARE / HOMELESS Condition: GOOD Referrals: CALVIN ROOT APRN (PCP) Patient Instructions: Eye - Corneal Abrasion Additional Instructions: You were seen today after a piece of PVC plastic flew into your left eye. An eye examination revealed a corneal abrasion. You have been started on antibiotic ointment that you will instill 4 times a day for the next 5 days. I have sent a prescription to the pharmacy for this medication you may use [id number] Tylenol and or Motrin for pain or discomfort. Please follow-up with an gravity prospector tomorrow. Please return immediately to the emergency department for sudden loss of vision, increased pain not relieved with pain medications, or other concerns. Your tetanus immunization was brought up-to-date today in the emergency department with a medication called Adacel/Tdap please update your immunization records accordingly. Thank you for visiting our Emergency Department. It was a pleasure taking care of you today in the emergency department and we appreciate you trusting us with your care. If any additional problems come up don't hesitate to return to visit us. Please follow up with your primary care provider so they can plan additional care if needed and know about the problem that you had. If symptoms worsen come back to the Emergency Department. Any concerning symptoms that start such as chest pain, shortness of air, weakness or numbness on one side of the body, running high fevers or any other concerning symptoms return to the ER. Scripts Erythromycin Base (Erythromycin) 1 Gm Oint...g. 1 GM OP QID for corneal abrasion for 5 Days, #1 MISC 0 Refills Instill 1/2 inch ribbon to the inner side of the lower left eyelid 4 times a day for the next 5 days. Prov: AUBREY REDDING APRN 06/24/21 AUBREY REDDING APRN Jun 24, 2021 22:28
[2021-06-24] MEDS ORDERED: DIPH,PERTUSS(ACELL),TET VAC/PF 0.5 ML SYRINGE. VAX IM ONE (22:30)
[2021-06-24] MEDS ORDERED: ERYTHROMYCIN 0.5% OPHTH OINTMENT 1GM TUBE. OS ONE (22:30)
== END 2021-06-24 22:38 | disposition home or self-care (01) ==
LOC: ER 21:15
DX: S05.02XA Injury of conjunctiva and corneal abrasion without foreign body, left eye, initial encounter (principal); F17.200 Nicotine dependence, unspecified, uncomplicated; Z86.718 Personal history of other venous thrombosis and embolism; X58.XXXA Exposure to other specified factors, initial encounter; Y93.89 Activity, other specified; Y92.89 Other specified places as the place of occurrence of the external cause; Y99.8 Other external cause status
CPT/HCPCS: 90471; 90715; 99283